=== PATIENT | female | born 1970 | race Caucasian/White ===

== ENCOUNTER 2017-03-17 10:36 | Observation (INO) | payer SELFPAY ==
--- NOTE | 2017-03-17 11:17 | EDPHY ---
H & P Stated Complaint: ? r peritonsillar abcess/sent from to meet dr tang and have ct Time Seen by Provider: 03/17/17 11:06 - Personal History LMP (Females 10-55): 1-7 Days Ago Current Tetanus/Diphtheria Vaccine: Yes - Medical/Surgical History Hx Asthma: No Hx Chronic Respiratory Disease: No Hx Diabetes: No Hx Cardiac Disease: No Hx Renal Disease: No Hx Cirrhosis: No Hx Alcoholism: No Hx HIV/AIDS: No Hx Splenectomy or Spleen Trauma: No Other PMH: denies - Social History Smoking Status: Current some day smoker Constitutional: Initial Vital Signs Temperature (C) 36.7 C 03/17/17 10:42 Heart Rate 97 03/17/17 10:42 Respiratory Rate 18 03/17/17 10:42 Blood Pressure 123/89 H 03/17/17 10:42 O2 Sat (%) 97 03/17/17 10:42 O2 Delivery Mode Room Air Allergies/Adverse Reactions: No Known Allergies Allergy (Unverified 03/17/17 10:42) Home Medications: Medication Instructions Recorded NK [No Known Home Meds] 03/17/17 Medical Decision Making - Diagnostics Imaging Results: Imaging Impressions Face CT 03/17/17 11:33 Impression: 1. Submandibular gland inflammatory changes on the right side with associated abscess of the submandibular gland. 2. The source for the infection may be the right second molar of the mandible. Results called and discussed with Yonas Whitaker MD on 03/17/2017 at 12:58 Imaging: Discussed imaging studies w/ call center supervisor Radiologist ED Course/Re-evaluation: CHIEF COMPLAINT: R sided submandibular swelling HISTORY OF PRESENT ILLNESS: This patient is a 47 year old female complaining of right-sided neck swelling and pain onset Saturday morning, one day ago. She reports she had a toothache on the right side on Saturday, which has since resolved. She was seen at [facility] , who recommended she follow up here for evaluation of possible peritonsillar abscess. She denies recent illness, fever, chills, nausea, vomiting, or other associated symptoms. REVIEW OF SYSTEMS: A 10 point review of systems was performed and is negative with the exception of the elements mentioned in the history of present illness. PHYSICAL EXAM: HR, BP, O2 Sat, RR. Temp noted General Appearance: Alert, well hydrated, appropriate, and non-toxic appearing. Head: Atraumatic without scalp tenderness or obvious injury Eyes: Pupils equal, round, reactive to light and accommodation, EOMI, no trauma , no injection. Ears: Clear bilaterally, no perforation, normal landmarks Nose: Atraumatic, no rhinorrhea, clear. Throat: There is no erythema or exudates, no lesions, normal tonsils, mucus membranes moist. Neck: Right-sided submandibular swelling. Supple, nontender, no lymphadenopathy. Respiratory: No retractions, no distress, no wheezes, and no accessory muscle use. Lungs are clear to auscultation bilaterally. Cardiovascular: Regular rate and rhythm, no murmurs, rubs, or gallops. Good capillary refill all extremities. Gastrointestinal: Abdomen is soft, nontender, non-distended, no masses, no rebound, no guarding, no peritoneal signs. Musculoskeletal: Normal active ROM of all extremities, atraumatic. Neurological: Alert, appropriate, and interactive. Nonfocal neuro exam. Skin: No rashes, good turgor, no nodules on palpation. Past medical history: Denies Past surgical history: Denies Family history: Noncontributory Social history: Lives in [place]. Single. DIFFERENTIAL DIAGNOSIS: Includes but not limited to: dental abscess, submandibular abscess, peritonsillar abscess, cellulitis. MEDICAL DECISION MAKING: This patient is a 47 year old female presenting with one-day history of right- sided submandibular swelling. Due to toothache Saturday, I suspect possible dental abscess rather than peritonsillar abscess. Plan for maxillofacial CT with contrast to rule out submandibular abscess vs. dental abscess vs CASING FLUSHER. Plan to administer 1gm IV Etapenem, 10mg IV Decadron, and 30mg Ketorolac for treatment of infection and symptoms. 12:[address] Quentin Spence, radiologist. CT shows submandibular abscess possibly related to second molar infection. Patient NPO since last night at 17:00. She has had water today, but not since her arrival 2.5 hours ago. 13:[address] Davis Lozano, maxillofacial surgeon. He will come in to review her CT and manage further care and interventions. Plan for admission to hospitalist service prior to review by Dr. Lozano. 13:16 Spoke to hospitalist service. Dr. Stuart accepts admission for right submandibular abscess for perioperative management. - Data Points Laboratory Results: 03/17/17 11:38 POC Hgb 15.3 gm/dL gm/dL (12.6-16.3) POC Hct 45 % % (38-47) POC Sodium 136 mEq/L mEq/L (134-144) POC Potassium 3.7 mEq/L mEq/L (3.3-5.0) POC Chloride 98 mEq/L mEq/L (97-110) POC BUN 4 mg/dL L mg/dL (7-23) POC Creatinine 0.7 mg/dL mg/dL (0.6-1.0) POC Glucose 92 mg/dL mg/dL (70-100) Medications Given: Discontinued Medications Dexamethasone (Decadron Injection) 10 mg IVP EDNOW ONE Stop: 03/17/17 11:33 Last Admin: 03/17/17 11:47 Dose: 10 mg Ertapenem 1 gm/ Sodium (Chloride) 100 mls @ 200 mls/hr IV EDNOW ONE PRN Reason: Protocol Stop: 03/17/17 12:01 Last Admin: 03/17/17 12:12 Dose: 100 mls Ketorolac Tromethamine (Toradol) 30 mg IVP EDNOW ONE Stop: 03/17/17 11:33 Last Admin: 03/17/17 11:47 Dose: 30 mg Point of Care Test Results: 03/17/17 11:38 POC Sodium 136 POC Potassium 3.7 POC Chloride 98 POC BUN 4 L POC Creatinine 0.7 POC Glucose 92 Departure - Departure Disposition: [facility] Clinical Impression: Submandibular abscess Condition: Fair Report Scribed for: Yonas Whitaker Report Scribed by: Latesha Lyles Date of Report: 03/17/17 Time of Report: 13:00
[2017-03-17] MEDS ORDERED: ERTAPENEM 1 GM in NS 100 ML IV ONE (11:32)
[2017-03-17] MEDS ORDERED: DEXAMETHASONE 10 MG/ML VIAL IVP ONE (11:32)
[2017-03-17] MEDS ORDERED: KETOROLAC 30 MG/1 ML SDV IVP ONE (11:32)
[2017-03-17] MEDS ORDERED: IOPAMIDOL (ISOVUE-300) 100 ML BTL ONE (11:49)
[2017-03-17] MEDS ORDERED: LIDO/EPI 2%** Not for Epidural 20 ML MDV ONE (14:11)
[2017-03-17] MEDS ORDERED: OXYMETAZOLINE 30 ML NASAL SPRAY ONE (14:27)
[2017-03-17] MEDS ORDERED: MIDAZOLAM 2 MG/2 ML VIAL ONE ×2 (14:27→14:41)
[2017-03-17] MEDS ORDERED: PROPOFOL/EMULSION 500 MG/50 ML BOTTLE IV ONE (14:35)
[2017-03-17] MEDS ORDERED: fentaNYL 100 MCG/2 ML INJ ONE (14:41)
[2017-03-17] MEDS ORDERED: ACETAMINOPHEN 325 MG TAB PO PRN (15:18)
[2017-03-17] MEDS ORDERED: ONDANSETRON DISINTEGRATING 4 MG TAB PO PRN (15:18)
[2017-03-17] MEDS ORDERED: ONDANSETRON 4 MG/2 ML VIAL IVP PRN (15:18)
--- NOTE | 2017-03-17 15:18 | SOAPPROG ---
SOAP Progress Note Assessment/Plan: s: 47 yo female with tooth pain over the last few weeks, at ED today with increased rapid swelling of neck with pain exam: submandibular space swelling mvo of 45 mm, no sublingual swelling, painful carious #32 CT shows abscess in right submandibular space stemming from #32 or 31 a/p: npo, rba dw with patient plan to take to or for i and d of right SM space abscess and extract carious teeth. consent given taken to OR for above. Plan: 03/17/17 15:15 Objective: Vital Signs Temp Pulse Resp BP Pulse Ox 36.9 C 88 17 114/72 97 03/17/17 14:00 03/17/17 14:00 03/17/17 14:00 03/17/17 14:00 03/17/17 14:00 03/16/17 03/17/17 03/18/17 05:59 05:59 05:59 Intake Total 100 Balance 100 ICD10 Worksheet Patient Problems: Problems Problem Status Onset Submandibular abscess Acute
[2017-03-17] MEDS ORDERED: IBUPROFEN SUSP 100 MG/5 ML UDCUP PO PRN (15:22)
[2017-03-17] MEDS ORDERED: D5W 1/2 NS 1,000 ML IV SCH (15:30)
--- NOTE | 2017-03-17 16:20 | GHP ---
[f rep st] HISTORY AND PHYSICAL DATE OF ADMISSION: 03/17/2017 CHIEF COMPLAINT: Right submandibular abscess. HISTORY OF PRESENT ILLNESS: The patient is a 47-year-old female with no past medical history, compl aining of right neck swelling and pain that started last night. She has had issues with her wisdom teeth in the past and noted a toothache yesterday on the right side. Yesterday, she developed a sor e throat, and just felt tired and achy. She went to bed at 9 o'clock in the evening. This morning, she went to Urgent Care and the right-sided swelling increased drastically. She denied any shortne ss of breath or difficulty swallowing. She had some chills. No sweats or fevers. No nausea, vomit ing, or diarrhea. REVIEW OF SYSTEMS: I completed a 10-point review of systems. Negative, except as noted in the HPI. PAST MEDICAL HISTORY: None. SURGERIES: None. ALLERGIES: No drug allergies. MEDICATIONS: None. SOCIAL HISTORY: Lives in [place]. Works [employer] in [employer]. Occasional tobacco. Occasional cigarettes. No illicits. FAMILY HISTORY: Mother with stroke. PHYSICAL EXAMINATION: VITAL SIGNS: Temperature 36.9, blood pressure 114/72, heart rate 80s, respir ations 17, 97% on room air. GENERAL: The patient is well appearing, sitting up in bed, in no acute distress. HEENT: PERRLA. EOMI. Right submandibular swelling with tenderness. No overlying eryt yakelin. No airway compromise. Oropharynx is clear. CV: Regular rate and rhythm. No murmurs, prieto ps, or rubs. LUNGS: Clear to auscultation. No stridor. ABDOMEN: Soft, nontender, nondistended. Positive bowel sounds. : No suprapubic tenderness. MUSCULOSKELETAL: 5/5 upper and lower extre mity strength. NEURO: Cranial nerves 2-12 intact. PSYCH: Alert and oriented x3. Very pleasant. LABS: H and H 15 and 45. Sodium 136, potassium 3.7, chloride 98, BUN 4, creatinine 0.7. HCG negat kirby. IMAGING: Facial CT. There is a focal area of gas seen within the submandibular gland measuring 22 x 15 mm, consistent with an abscess, with surrounding edema. ASSESSMENT AND PLAN: 1. Submandibular abscess stemming from tooth #32 or 31. Plan for surgery today for I and D and ext raction of teeth. Will start IV Unasyn empirically. 2. Diet. N.p.o. for surgery. 3. Deep venous thrombosis prophylaxis. Low risk, ambulatory. DISPOSITION: The patient warrants observation admission given acute abscess warranting I and D and IV antibiotics. /[id number]/MODL
[2017-03-17] MEDS: AMPICILLIN/SULBACTAM 3 GM in NS 100 ML IV SCH (17:20)
[2017-03-17] MEDS: HYDROmorphONE/DILAUDID 2 MG TAB PO PRN ×2 (17:59→22:34)
[2017-03-18] MEDS: AMPICILLIN/SULBACTAM 3 GM in NS 100 ML IV SCH ×3 (00:24→11:53)
[2017-03-18 05:07] LABS: HEMATOCRIT 38.1 % (38.0-47.0); HEMOGLOBIN 13.1 g/dL (12.6-16.3); MEAN CELL HEMOGLOBIN 32.4 pg (27.9-34.1); MEAN CELL HEMOGLOBIN CONCENTR. 34.4 g/dL (32.4-36.7); MEAN CELL VOLUME 94.3 fL (81.5-99.8); RED BLOOD CELL COUNT 4.04 10^6/uL (4.18-5.33); RED CELL DISTRIBUTION WIDTH 13.8 % (11.5-15.2)
[2017-03-18 05:16] LABS: ANION GAP 9 mEq/L (8-16); CALCIUM 9.9 mg/dL (8.5-10.4); CARBON DIOXIDE 25 mEq/l (22-31); CHLORIDE 103 mEq/L (97-110); CREATININE 0.7 mg/dL (0.6-1.0); GLOMERULAR FILTRATION RATE > 60; GLUCOSE 159 mg/dL (70-100); POTASSIUM 4.5 mEq/L (3.5-5.2); SODIUM 137 mEq/L (134-144)
[2017-03-18 07:25] VITALS: O2SAT 95
--- NOTE | 2017-03-18 09:12 | GOP ---
[f rep st] OPERATIVE REPORT DATE OF OPERATION: 03/17/2017 SURGEON: Demar Lozano DDS PREOPERATIVE DIAGNOSIS: 1. Abscess of the right submandibular space. 2. Carious #32. POSTOPERATIVE DIAGNOSIS: 1. Abscess of the right submandibular space. 2. Carious #32. PROCEDURE PERFORMED: 1. Extraction of tooth #32. 2. Incision and drainage of right submandibular abscess. 3. Placement of Nathaly drain. FINDINGS: Carious #32 with right submandiular space abscess. INDICATIONS: This is a 47-year-old, healthy woman, who was experiencing some mild tooth pain over the last couple of weeks. In the last 48 hours, she noted pronounced rapid swelling underneath her jaw and neck. She presented to the emergency room, where a CT scan was obtained, and it was noted that an abscess collection was found in her right submandibular space, stemming from a carious molar. The patient was consented to go to the operating room for removal of tooth #32 and possibly tooth #31, with incision and drainage of the right submandibular space. DESCRIPTION OF PROCEDURE: The patient was taken to the operating room, where she was placed on the operating room table. She was induced under general anesthesia and orotracheally intubated. She was then prepped and draped in a standard oral and maxillofacial surgical fashion. She was infiltrated with approximately 10 cc of 2% lidocaine with 1:100,000 epinephrine. An 18-gauge needle was introduced into the right submandibular space, and a small amount of early pus or serosanguineous drainage was noted that was cultured and sent off the table as a deep neck abscess for aerobic and anaerobic cultures. A #15 blade was then introduced to the point of maximum fluctuance, and an approximately 1 cm incision was made through the skin. A Abbi forceps was then introduced to come through the platysma to the inferior border of the mandible. The sublingual, submandibular, and submental spaces were explored. A quarter-inch Nathaly drain was introduced and secured using two 3-0 silk sutures. Attention was then turned intraorally. Number 32 was noted to be grossly carious, and was elevated and extracted without incident. Thirty-one, however, did look to be not carious and not the source of her infection. The area was then copiously irrigated. The throat pack was removed, and the patient was turned over to the anesthesia service, where she was brought out of general anesthesia and sent to the PACU in stable condition. There was 1 quarter-inch Nathaly placed in the right submandibular space. There was 1 specimen, labeled deep neck abscess. She had approximately 500 cc of lactated Ringer's. /[id number]/MODL MTDD
[2017-03-18 11:07] VITALS: BP 109/64; PULSE 84; RESP 12; TEMP 98
--- NOTE | 2017-03-18 13:45 | SOAPPROG ---
SOAP Progress Note Assessment/Plan: s: pod #1 sp I and D of right submandibular space and extraction of tooth #32. Patient up in bed, no pain, feeling great -" I just want to go home" She looks better that I would have expected. Elevated wbc of 22 this am. do not have a lab from yesterday to examine trends. o: drain mildly productive, MVO 50 mm, area of #32 healing well. swelling markedly decreased. a/p:improving beyond expectation this morning, however with an elevated WBC. 1- DC ok if follows up in my office tomorrow - call [phone] for follow up 2- gave rx for Diluaded 2mg x 10 one tab q 4 h prn pain, Augmentin 875 BID x 7 days. 3- will follow closely as an outpatient Plan: 03/17/17 15:15 03/18/17 13:40 Objective: Vital Signs Temp Pulse Resp BP Pulse Ox 36.6 C 84 12 109/64 95 03/18/17 11:05 03/18/17 11:05 03/18/17 11:05 03/18/17 11:05 03/18/17 11:05 Microbiology 03/17/17 15:26 Gram Stain - Final Neck - Eswab Laboratory Results 03/18/17 04:29 03/18/17 04:29 03/17/17 03/18/17 03/19/17 05:59 05:59 05:59 Intake Total 8647 Output Total 6760 Balance 387 ICD10 Worksheet Patient Problems: Problems Problem Status Onset Submandibular abscess Acute
--- NOTE | 2017-03-18 14:53 | GDS ---
[f rep st] DISCHARGE SUMMARY DIAGNOSES: 1. Right submandibular abscess. 2. Leukocytosis. HOSPITAL COURSE: This is a 47-year-old female, otherwise healthy, who presented with a right subman dibular abscess. This was drained by Dr. Lozano. She also underwent a tooth #32 extraction. Po stop day #1, she is doing better. She has been seen by Dr. Lozano, who recommends discharge with close followup. She has been given his information for followup. She received IV Unasyn here, she will be transitioned to Augmentin as an outpatient for an additional [address] Lozano also wr ote her for a short course of Dilaudid p.o. for pain control. Discharged in stable condition. /[id number]/MODL
== END 2017-03-18 14:22 | disposition home or self-care (01) ==
LOC: F3E 16:07
PROVIDERS: ADMIT Internal Medicine; ATTEND Student in an Organized Health Care Education/Training Program
PROC: 0CDXXZ0 Extraction of Lower Tooth, Single, External Approach (ICD-10-PCS; principal; 2017-03-17 14:40)
PROC: 0C9 Mouth and Throat, Drainage (ICD-10-PCS; principal; 2017-03-17 14:40)
DX: K11.3 Abscess of salivary gland (principal); K02.9 Dental caries, unspecified
CPT/HCPCS: 82947-QW; 96365; G0378; J0295; J1335; J1885; J2250; J2704; J3010; Q9967